=== PATIENT | female | born 1940 | race Caucasian/White ===

== ENCOUNTER 2016-11-25 11:56 | Day surgery (SDC) | payer MEDICARE, MEDICAID ==
[~2016-11-25 11:56] MED LIST: DIPHENHYDRAMINE HCL 50 MG/ML VIAL ONE; EPINEPHRINE INJ 1 MG/10 ML DISP.SYRIN ONE; FENTANYL CITRATE INJ/PF 100 MCG/2 ML AMPUL ONE; FLUMAZENIL INJ 0.5 MG/5 ML VIAL IV ONE; GLUCAGON,HUMAN RECOMB 1 MG INJ ONE; MIDAZOLAM 2 MG/2 ML INJ ONE; NALOXONE HCL INJ/PF 0.4 MG/1 ML SDV ONE; ONDANSETRON HCL INJ/PF 4 MG/2 ML SDV ONE
[2016-11-25] MEDS ORDERED: ONABOTULINUMTOXINA INJ/PF 100 UNIT SDV IJ ONE (13:00)
--- NOTE | 2016-11-25 14:03 | Operative Report ---
Operative Report DATE OF SURGERY: 11/25/16 Operative Report: The risks benefits and alternatives of the procedure explained to the patient in detail and informed consent is obtained.A GIF Olympus video scope was inserted into the patient's mouth and hypopharynx ,the esophagus is identified intubated and insufflated, the scope was then advanced through the esophagus stomach and duodenum, retroflexion maneuver is done, the esophagus stomach and first and second portions of the duodenum examined PREOPERATIVE DIAGNOSIS: Nausea and vomiting. Gastroparesis POSTOPERATIVE DIAGNOSIS: Schatzki's ring status post breakage. Hiatal hernia. Gastritis. Residual food noted in the stomach suggestive of gastroparesis, status post Botox injection 100 units per 5 mL OPERATION: EGD with submucosal injection SURGEON: MALENA QUIÑONEZ ANESTHESIA: Moderate Sedation - 2 mg of Versed conscious sedation monitoring time 30 minutes TISSUE REMOVED OR ALTERED: Gastritis, gastric specimen obtained without Helicobacter pylori COMPLICATIONS: None. ESTIMATED BLOOD LOSS: None. INTRAOPERATIVE FINDINGS: As described above. PROCEDURE: Patient tolerated the procedure well. No immediate postprocedure complications are noted. Patient discharged in good condition. Discharge date 11/25/2016. Discharge diet: Regular. Discharge activity: Regular. 2-3 week follow-up to discuss findings. We will wait on biopsies. Patient is instructed to call the office or proceed to the emergency room should there be any further problems or questions. I did write a prescription for the patient for 5 mg of Valium as that seems to help her gastroparesis.
[2016-11-25 14:31] VITALS: BP 122/72
== END 2016-11-25 14:25 | disposition home or self-care (01) ==
LOC: END 11:56
PROVIDERS: ATTEND Internal Medicine Gastroenterology
PROC: 0DB68ZX Excision of Stomach, Via Natural or Artificial Opening Endoscopic, Diagnostic (ICD-10-PCS; principal; 2016-11-25 12:30)
PROC: 3E0G8GC Introduction of Other Therapeutic Substance into Upper GI, Via Natural or Artificial Opening Endoscopic (ICD-10-PCS; 2016-11-25 12:30)
DX: R10.13 Epigastric pain (principal); K44.9 Diaphragmatic hernia without obstruction or gangrene; K29.50 Unspecified chronic gastritis without bleeding; K31.84 Gastroparesis; E78.00 Pure hypercholesterolemia, unspecified; I10 Essential (primary) hypertension; Z79.82 Long term (current) use of aspirin; Z79.899 Other long term (current) drug therapy; Z79.891 Long term (current) use of opiate analgesic; Z85.3 Personal history of malignant neoplasm of breast
CPT/HCPCS: 43236; 43239; 88342 ×2; 88305 ×2; J2250; J2405; J0585; J0171; J1200; J1610; J2310; J3010; J3490

== ENCOUNTER 2017-01-09 11:01 | Day surgery (SDC) | payer MEDICARE, MEDICAID ==
[~2017-01-09 11:01] MED LIST changes: -MIDAZOLAM 2 MG/2 ML INJ ONE; +ONABOTULINUMTOXINA INJ/PF 100 UNIT SDV IJ PRN
[2017-01-09] MEDS: MIDAZOLAM 2 MG/2 ML INJ ONE ×3 (12:01→12:11)
--- NOTE | 2017-01-09 12:17 | Operative Report ---
Operative Report DATE OF SURGERY: 01/09/17 Operative Report: The risks benefits and alternatives of the procedure explained to the patient in detail and informed consent is obtained. A GIF Olympus video scope was inserted into the patient's mouth and hypopharynx, the esophagus is identified intubated and insufflated ,the scope was then advanced through the esophagus stomach and duodenum ,retroflexion maneuver is done the esophagus stomach and first and second portions of the duodenum examined. PREOPERATIVE DIAGNOSIS: Nausea vomiting POSTOPERATIVE DIAGNOSIS: Patent gastric outlet. Gastritis status post biopsy. Injection of Botox at the distal esophageal junction to see if that would alleviate some of the patient's symptoms, consideration of achalasia OPERATION: EGD with submucosal injection. EGD with biopsy SURGEON: MALENA QUIÑONEZ ANESTHESIA: Moderate Sedation - 4 mg of Versed, 50 mcg of fentanyl. Conscious sedation monitoring time 30 minutes. TISSUE REMOVED OR ALTERED: As described above. COMPLICATIONS: None. ESTIMATED BLOOD LOSS: None. INTRAOPERATIVE FINDINGS: As described above. PROCEDURE: Patient tolerated the procedure well. No immediate postprocedure complications are noted. Patient discharged in good condition. Discharge date 01/09/2017. Discharge diet: Regular. Discharge activity: Regular. 2-3 week follow-up to discuss findings. Patient is instructed to call the office or proceed to the emergency room should there be any further problems or questions. We will wait on biopsy.
[2017-01-09 13:32] VITALS: BP 141/65
== END 2017-01-09 13:20 | disposition home or self-care (01) ==
LOC: END 11:01
PROVIDERS: ATTEND Internal Medicine Gastroenterology
PROC: 0DB68ZX Excision of Stomach, Via Natural or Artificial Opening Endoscopic, Diagnostic (ICD-10-PCS; principal; 2017-01-09 11:30)
PROC: 3E0G8GC Introduction of Other Therapeutic Substance into Upper GI, Via Natural or Artificial Opening Endoscopic (ICD-10-PCS; 2017-01-09 11:30)
DX: K29.50 Unspecified chronic gastritis without bleeding (principal); K31.84 Gastroparesis; K59.09 Other constipation; E78.00 Pure hypercholesterolemia, unspecified; I10 Essential (primary) hypertension; Z87.891 Personal history of nicotine dependence; Z79.899 Other long term (current) drug therapy; Z79.82 Long term (current) use of aspirin; Z79.891 Long term (current) use of opiate analgesic
CPT/HCPCS: 43236; 43239; 88342 ×2; 88305 ×2; J2250; J3010; J0585; J0171; J1200; J1610; J2310; J2405; J3490

== ENCOUNTER 2017-02-27 12:33 | Emergency (ER) | payer MEDICARE, MEDICAID ==
[2017-02-27] MEDS ORDERED: PROMETHAZINE HCL INJ 25 MG/1 ML VIAL IM ONE (13:09)
[2017-02-27] MEDS ORDERED: NORMAL SALINE 1000 ML 1,000 ML IV ONE (13:09)
--- NOTE | 2017-02-27 13:09 | ER Document Report ---
ED Medical Screen (RME) - General TRAVEL OUTSIDE OF THE [place].S. IN LAST 30 DAYS: No <DENISE GUZMAN - Last Filed: 02/27/17 14:05> <RAVI NOVAK - Last Filed: 02/27/17 16:36> - General Chief Complaint: Abdominal Pain Stated Complaint: ABDOMINAL PAIN,NAUSEA Time Seen by Provider: 02/27/17 13:01 Notes: Patient is a 76 year old female presenting to the emergency department for nausea and vomiting since Thursday. Patient states she also has low abdominal pain which is exacerbated with standing. Patient states her abdomen is also swollen. Patient denies any hematemesis. Patient receives botox injections to help her stomach empty. Patient denies any fevers, chills, or sweats but states she is frequently hot and cold. Patient was scheduled to have a &C in [place] but it was unsuccessful so she is going to have this done in [place] next week. Patient also is going to receive another botox injection on Thursday. Patient sees Dr. Khan who advises the patient does not receive any CT scanning because she has had 6 or 7 in the past 45 days. Patient was told to go to the emergency department for IV fluids and phenergan because nausea is not controlling her nausea/vomiting. Patient states she takes Miralax every day and has had normal bowel movements. (DENISE GUZMAN) - Related Data Allergies/Adverse Reactions: No Known Allergies Allergy (Verified 02/27/17 12:44) Past Medical History - Past Medical History Cardiac Medical History: Reports: Hx Coronary Artery Disease, Hx Hypertension Denies: Hx Heart Attack Pulmonary Medical History: Denies: Hx Asthma, Hx Bronchitis, Hx COPD, Hx Pneumonia Neurological Medical History: Denies: Hx Cerebrovascular Accident, Hx Seizures Renal/ Medical History: Denies: Hx Peritoneal Dialysis GI Medical History: Denies: Hx Hepatitis, Hx Hiatal Hernia, Hx Ulcer Musculoskeltal Medical History: Reports Hx Arthritis Infectious Medical History: Denies: Hx Hepatitis Past Surgical History: Denies: Hx Hysterectomy, Hx Mastectomy - left lumpectomy- -no restrictions, Hx Open Heart Surgery, Hx Pacemaker - Immunizations Hx Diphtheria, Pertussis, Tetanus Vaccination: Yes <DENISE GUZMAN - Last Filed: 02/27/17 14:05> Physical Exam <DENISE GUZMAN - Last Filed: 02/27/17 14:05> <RAVI NOVAK - Last Filed: 02/27/17 16:36> - Vital signs Vitals: Temp Pulse Resp BP Pulse Ox 97.9 F 91 16 139/69 H 97 02/27/17 12:44 02/27/17 12:44 02/27/17 12:44 02/27/17 12:44 02/27/17 12:44 - Notes Notes: GENERAL: Alert, interacts well. No acute distress. LUNGS: Clear to auscultation bilaterally, no wheezes, rales, or rhonchi. No respiratory distress. HEART: Regular rate and rhythm. No murmurs, gallops, or rubs. ABDOMEN: Soft, Minimal tenderness to the abdomen while in a seated position, exam is difficult due to patient being in a seated position. Non-distended. Bowel sounds present in all 4 quadrants. NEUROLOGICAL: Alert and oriented x3. Normal speech. (DENISE GUZMAN) Course - Laboratory Result Diagrams: 02/27/17 16:05 02/27/17 16:05 <RAVI NOVAK - Last Filed: 02/27/17 16:36> - Vital Signs Vital signs: Temp Pulse Resp BP Pulse Ox 97.9 F 91 16 139/69 H 97 02/27/17 12:44 02/27/17 12:44 02/27/17 12:44 02/27/17 12:44 02/27/17 12:44 - Laboratory Laboratory results interpreted by me: 02/27/17 02/27/17 14:45 16:05 MCV 98 H MCH 34.0 H Urine Ketones TRACE H Scribe Documentation - Scribe Written by Scribe:: Ranjeet Barba 02/27/17 14:11 acting as scribe for :: Mikey <DENISE GUZMAN - Last Filed: 02/27/17 14:05>
--- NOTE | 2017-02-27 14:14 | ER Document Report ---
ED GI/ - General Chief Complaint: Abdominal Pain Stated Complaint: ABDOMINAL PAIN,NAUSEA Time Seen by Provider: 02/27/17 13:01 Mode of Arrival: Ambulatory Information source: Patient Notes: 76-year-old with chronic abdominal pain female sent by Dr. Smart for 1 L IV fluid and Phenergan IM injection. She has been complaining of abdominal pain for several months, history of gastroparesis in which she takes erythromycin to help induce movements and had botox via EGD in november and January. She has had 7-8 CT scans in the last 45 days. 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 Dr. Smart is her industrial engineering manager. She had bilious vomiting for several days, decreased appetite, no fever. She has a bowel movement daily due to MiraLAX. She is scheduled for D and C in [place] on due to uterinefluid collection and cervical os stenosis. TRAVEL OUTSIDE OF THE [place] IN LAST 30 DAYS: No - Related Data Allergies/Adverse Reactions: No Known Allergies Allergy (Verified 02/27/17 12:44) Past Medical History - General Information source: Patient, Relative - daughter that she lives with - Social History Smoking Status: Never Smoker Frequency of alcohol use: None Drug Abuse: None Lives with: Family - daughter Family History: Reviewed & Not Pertinent Patient has suicidal ideation: No Patient has homicidal ideation: No - Past Medical History Cardiac Medical History: Reports: Hx Coronary Artery Disease, Hx Hypercholesterolemia, Hx Hypertension Malignancy Medical History: Reports: Hx Breast Cancer GI Medical History: Reports: Other - Gastroparesis Musculoskeltal Medical History: Reports Hx Arthritis Past Surgical History: Reports: Hx Gynecologic Surgery - left breast lumpectomy , Hx Orthopedic Surgery - back disc repair - Immunizations Hx Diphtheria, Pertussis, Tetanus Vaccination: Yes Hx Pneumococcal Vaccination: 07/06/11 Review of Systems - Review of Systems Constitutional: No symptoms reported EENT: No symptoms reported Cardiovascular: No symptoms reported Respiratory: No symptoms reported Gastrointestinal: See HPI Genitourinary: No symptoms reported Female Genitourinary: No symptoms reported Musculoskeletal: No symptoms reported Skin: No symptoms reported Hematologic/Lymphatic: No symptoms reported Neurological/Psychological: No symptoms reported Physical Exam - Vital signs Vitals: Temp Pulse Resp BP Pulse Ox 97.9 F 91 16 139/69 H 97 02/27/17 12:44 08/25/17 12:44 02/27/17 12:44 02/27/17 12:44 02/27/17 12:44 Interpretation: Normal - General General appearance: Appears well, Alert In distress: None - HEENT Head: Normocephalic, Atraumatic Eyes: Normal Conjunctiva: Normal Pupils: PERRL Pharynx: Normal Neck: Supple. No: Lymphadenopathy - Respiratory Respiratory status: No respiratory distress Chest status: Nontender Breath sounds: Normal Chest palpation: Normal - Cardiovascular Rhythm: Regular Heart sounds: Normal auscultation Murmur: No - Abdominal Inspection: Normal Distension: No distension Bowel sounds: Normal Tenderness: Tender - mild soft generalized tenderness. No: Guarding, Rebound Organomegaly: No organomegaly. No: Hepatomegaly, Splenomegaly - Back Back: Normal, Nontender. No: CVA tenderness - Extremities General upper extremity: Normal inspection, Nontender, Normal color, Normal ROM , Normal temperature General lower extremity: Normal inspection, Nontender, Normal color, Normal ROM , Normal temperature, Normal weight bearing. No: Nahed's sign - Neurological Neuro grossly intact: Yes Cognition: Normal Orientation: AAOx4 Mattie Coma Scale Eye Opening: Spontaneous Mattie Coma Scale Verbal: Oriented Harper Coma Scale Motor: Obeys Commands Mattie Coma Scale Total: 15 Speech: Normal Motor strength normal: LUE, RUE, LLE, RLE Sensory: Normal - Psychological Associated symptoms: Normal affect, Normal mood - Skin Skin Temperature: Warm Skin Moisture: Dry Skin Color: Normal Skin irregularity: negative: Rash Course - Re-evaluation Re-evalutation: 02/27/17 17:14 Acute abdominal series is negative for obstruction or acute changes. Lab work is normal. Patient is up to the bedside commode and she feels better there is no nausea or vomiting while in the emergency department. Her NS IV fluid is infusing. - Vital Signs Vital signs: Temp Pulse Resp BP Pulse Ox 97.9 F 91 16 139/69 H 97 02/27/17 12:44 02/27/17 12:44 02/27/17 12:44 02/27/17 12:44 02/27/17 12:44 - Laboratory Result Diagrams: 02/27/17 16:05 02/27/17 16:05 Laboratory results interpreted by me: 02/27/17 02/27/17 02/27/17 14:45 16:05 16:05 MCV 98 H MCH 34.0 H Calcium 10.4 H Direct Bilirubin 0.6 H Urine Ketones TRACE H Discharge - Discharge Clinical Impression: Chronic abdominal pain, Gastroparesis, Vomiting Condition: Good Disposition: HOME, SELF-CARE Instructions: Abdominal Pain ([facility]), Nausea or Vomiting, Nonspecific ([facility]), Antinausea Medication ([facility]) Additional Instructions: to er if worse see dr. quiñonez on thursday as planned Please complete the patient satisfaction survey if you get one, and return it.. If you do not receive a survey, then you can go to the [facility] website, [email or web address] and place your comments about your very good care. Thank you very much. It was a pleasure being your medical provider today. Prescriptions: Promethazine HCl [Phenergan 25 mg Supp.rect] 25 mg OR Q6H PRN #[id number] supp.rect PRN Reason: Referrals: MALENA QUIÑONEZ MD [Primary Care Provider] - 03/02/17
[2017-02-27 14:56] LABS: APPEARANCE,URINE CLEAR; BILIRUBIN,URINE NEGATIVE (NEGATIVE); GLUCOSE, URINE NEGATIVE (NEGATIVE); KETONES,URINE TRACE mg/dL (NEGATIVE); LEUKOCYTE ESTERASE,URINE NEGATIVE (NEGATIVE); NITRITE,URINE NEGATIVE (NEGATIVE); PROTEIN,URINE NEGATIVE (NEGATIVE); URINE SPECIFIC GRAVITY 1.013; UROBILINOGEN,URINE NEGATIVE mg/dL (<2.0)
--- NOTE | 2017-02-27 15:35 | RADIOLOGY REPORT (SQ) ---
EXAM DESCRIPTION: ACUTE ABDOMEN SERIES COMPLETED DATE/TIME: 02/27/2017 3:07 pm REASON FOR STUDY: vomiting, r/o SBO COMPARISON: None. NUMBER OF VIEWS: Three views. TECHNIQUE: Frontal chest, supine abdomen and upright/decubitus abdomen radiographic images acquired. LIMITATIONS: None. FINDINGS: CHEST: Lungs clear of infiltrates. FREE AIR: None. No abnormal gas collections. BOWEL GAS PATTERN: Nonobstructive pattern. No dilated loops or air fluid levels. CALCIFICATIONS: No suspicious calcifications. HARDWARE: Lumbar fusion. SOFT TISSUES: No gross mass or suggestion of organomegaly. BONES: No acute fracture. No worrisome bone lesions. OTHER: No other significant finding. IMPRESSION: NO RADIOGRAPHIC EVIDENCE FOR ACUTE ABDOMINAL DISEASE. TECHNICAL DOCUMENTATION: JOB ID: [id number] [employer]- All Rights Reserved
[2017-02-27 16:11] LABS: ABSOLUTE EOSINOPHILS # (AUTO) 0.1 10^3/uL (0.0-0.6); ABSOLUTE LYMPHOCYTES (AUTO) 1.2 10^3/uL (0.5-4.7); ABSOLUTE MONOCYTES (AUTO) 0.4 10^3/uL (0.1-1.4); ABSOLUTE NEUT (AUTO) 3.4 10^3/uL (1.7-8.2); BASOPHILS % (AUTO) 0.8 % (0-2); EOSINOPHILS % (AUTO) 2.9 % (0-6); HEMATOCRIT 38.8 % (36.0-47.0); HEMOGLOBIN 13.5 g/dL (12.0-15.5); HGB HCT DIFFERENCE 1.7; LYMPHOCYTES % (AUTO) 22.7 % (13-45); MEAN CORPUSCULAR HGB CONC 34.8 g/dL (32.0-36.0); MEAN CORPUSCULAR VOLUME 98 fl (80-97); MONOCYTES % (AUTO) 7.5 % (3-13); RED BLOOD COUNT 3.97 10^6/uL (3.72-5.28); RED CELL DISTRIBUTION WIDTH 13.7 % (11.5-14.0); SEGMENTED NEUTROPHILS % (AUTO) 66.1 % (42-78); WHITE BLOOD COUNT 5.1 10^3/uL (4.0-10.5)
[2017-02-27 16:43] LABS: ALANINE AMINOTRANSFERASE 17 U/L (9-52); ALBUMIN 4.6 g/dL (3.5-5.0); ALKALINE PHOSPHATASE 111 U/L (38-126); ANION GAP 11 (5-19); ASPARTATE AMINO TRANSFERASE 35 U/L (14-36); BILIRUBIN,DIRECT 0.6 mg/dL (0.0-0.4); BLOOD UREA NITROGEN 17 mg/dL (7-20); CALCIUM 10.4 mg/dL (8.4-10.2); CARBON DIOXIDE 30 mmol/L (22-30); CHLORIDE 102 mmol/L (98-107); CREATININE RESULT 0.83 mg/dL (0.52-1.25); GLUCOSE 91 mg/dL (75-110); POTASSIUM 3.9 mmol/L (3.6-5.0); SODIUM 143.4 mmol/L (137-145); TOTAL PROTEIN 7.8 g/dL (6.3-8.2)
[2017-02-27 18:06] VITALS: BP 163/69
== END 2017-02-27 18:18 | disposition home or self-care (01) ==
LOC: ER 12:33
DX: K31.84 Gastroparesis (principal); N88.2 Stricture and stenosis of cervix uteri; R10.9 Unspecified abdominal pain; G89.29 Other chronic pain; R11.14 Bilious vomiting; R63.0 Anorexia; I25.10 Atherosclerotic heart disease of native coronary artery without angina pectoris; I10 Essential (primary) hypertension; Z79.2 Long term (current) use of antibiotics; Z98.890 Other specified postprocedural states; Z79.899 Other long term (current) drug therapy; Z85.3 Personal history of malignant neoplasm of breast
CPT/HCPCS: 99284; 96372; 51701; 36415; 87086; 85025; 80053; 81001; 74022; J2550

== ENCOUNTER 2017-03-02 11:04 | Day surgery (SDC) | payer MEDICARE, MEDICAID ==
[2017-03-02] MEDS ORDERED: PROPOFOL INJ 200 MG/20 ML VIAL IV ONE (11:23)
[2017-03-02] MEDS ORDERED: ONABOTULINUMTOXINA INJ/PF 100 UNIT SDV IM ONE (12:00)
[2017-03-02 13:02] VITALS: BP 151/75
--- NOTE | 2017-03-02 13:25 | Operative Report ---
Operative Report DATE OF SURGERY: 03/02/17 Operative Report: The risks benefits and alternatives of the procedure explained to the patient in detail and informed consent is obtained.A GIF Olympus video scope was inserted into the patient's mouth and hypopharynx, the esophagus is identified intubated and insufflated, the scope was then advanced through the esophagus stomach and duodenum ,retroflexion maneuver is done, the esophagus stomach and first and second portions of the duodenum examined PREOPERATIVE DIAGNOSIS: Nausea vomiting, known gastroparesis POSTOPERATIVE DIAGNOSIS: Some residual fluid noted in the stomach. Residual food noted in the esophagus. Gastritis is noted biopsies obtained. Botox injection done 3 cc at the gastric outlet, 2 cc at the distal esophageal junction. Patient may possibly have achalasia OPERATION: EGD with submucosal injection. EGD with biopsy SURGEON: MALENA QUIÑONEZ ANESTHESIA: LMAC TISSUE REMOVED OR ALTERED: Gastric mucosal specimen obtained to rule out Helicobacter pylori COMPLICATIONS: None. ESTIMATED BLOOD LOSS: None. INTRAOPERATIVE FINDINGS: As described above. PROCEDURE: Patient tolerated procedure well. No immediate postprocedure complications are noted. Patient discharged in good condition. Discharge date 03/02/2017. Discharge diet: Regular. Discharge activity: Regular. 2-3 week follow-up to discuss findings. Patient is instructed to call the office or proceed to the emergency room should there be any further problems or questions. We will wait on pathology.
== END 2017-03-02 12:59 | disposition home or self-care (01) ==
LOC: END 11:04
PROVIDERS: ATTEND Internal Medicine Gastroenterology
PROC: 0DB68ZX Excision of Stomach, Via Natural or Artificial Opening Endoscopic, Diagnostic (ICD-10-PCS; principal; 2017-03-02 13:30)
DX: K31.9 Disease of stomach and duodenum, unspecified (principal)
CPT/HCPCS: 43239; 88342 ×2; 88305 ×2; J2704; J0585; 43236; 740

== ENCOUNTER 2018-02-10 08:19 | Day surgery (SDC) | payer MEDICARE, MEDICAID ==
[2018-02-10] MEDS ORDERED: ONDANSETRON HCL INJ/PF 4 MG/2 ML SDV ONE (08:24)
[2018-02-10] MEDS ORDERED: DIPHENHYDRAMINE HCL 50 MG/ML VIAL ONE (08:24)
[2018-02-10] MEDS ORDERED: MIDAZOLAM 2 MG/2 ML INJ ONE (08:24)
[2018-02-10] MEDS ORDERED: NALOXONE HCL INJ/PF 0.4 MG/1 ML SDV ONE (08:24)
[2018-02-10] MEDS ORDERED: FENTANYL CITRATE INJ/PF 100 MCG/2 ML AMPUL ONE (08:25)
[2018-02-10] MEDS ORDERED: GLUCAGON,HUMAN RECOMB 1 MG INJ ONE (08:26)
[2018-02-10] MEDS ORDERED: EPINEPHRINE INJ 1 MG/10 ML DISP.SYRIN ONE (08:26)
[2018-02-10] MEDS ORDERED: FLUMAZENIL INJ 0.5 MG/5 ML VIAL ONE (08:26)
[2018-02-10] MEDS ORDERED: ONABOTULINUMTOXINA INJ/PF 100 UNIT SDV IJ ONE (09:00)
[2018-02-10] MEDS: MIDAZOLAM 2 MG/2 ML INJ ONE ×2 (09:13→09:21)
--- NOTE | 2018-02-10 09:29 | Operative Report ---
Operative Report DATE OF SURGERY: 02/10/18 Operative Report: The risks benefits and alternatives of the procedure explained to the patient in detail and informed consent is obtained.A GIF Olympus video scope was inserted into the patient's mouth and hypopharynx, the esophagus is identified intubated and insufflated, the scope was then advanced through the esophagus stomach and duodenum ,retroflexion maneuver is done, the esophagus stomach and first and second portions of the duodenum examined PREOPERATIVE DIAGNOSIS: Gastroparesis. Nausea vomiting POSTOPERATIVE DIAGNOSIS: Gastroparesis. Status post Botox injection 3 mL's or 60 units in the gastric outlet. 2 mL or 40 units at the distal esophageal junction OPERATION: EGD with submucosal injection SURGEON: MALENA QUIÑONEZ ANESTHESIA: LMAC - 4 mg of Versed, 25 mcg of fentanyl. 4 mg of Zofran. Conscious sedation monitoring time 30 minutes. TISSUE REMOVED OR ALTERED: None. COMPLICATIONS: None. ESTIMATED BLOOD LOSS: None. INTRAOPERATIVE FINDINGS: As noted above. PROCEDURE: Patient tolerated the procedure well. No immediate postprocedure complications are noted. Patient is discharged in good condition. Discharge date 02/10/2018. Discharge diet: Regular. Discharge activity: Regular. 2-3 week follow-up to discuss findings. Patient is instructed call the office or proceed to the emergency room should there be any further problems or questions. We will wait on pathology.
[2018-02-10 10:53] VITALS: BP 149/68
== END 2018-02-10 10:40 | disposition home or self-care (01) ==
LOC: END 08:19
PROVIDERS: ATTEND Internal Medicine Gastroenterology
DX: K31.84 Gastroparesis (principal); R11.2 Nausea with vomiting, unspecified; E78.00 Pure hypercholesterolemia, unspecified; I10 Essential (primary) hypertension; Z87.891 Personal history of nicotine dependence; Z79.899 Other long term (current) drug therapy; Z79.891 Long term (current) use of opiate analgesic; Z88.2 Allergy status to sulfonamides
CPT/HCPCS: 43236; J2250; J3010; J2405; J0585; J0171; J1200; J1610; J2310; J3490

== ENCOUNTER 2018-04-17 10:54 | Emergency (ER) | payer MEDICARE, MEDICAID ==
[2018-04-17] MEDS ORDERED: KETOROLAC TROMETHAMINE INJ/PF 30 MG/1 ML SDV IV ONE (11:10)
--- NOTE | 2018-04-17 11:11 | ER Document Report ---
ED Medical Screen (RME) - General Chief Complaint: Abdominal Pain Stated Complaint: ABDOMEN PAIN Time Seen by Provider: 04/17/18 11:08 Mode of Arrival: Wheelchair Information source: Patient, Relative TRAVEL OUTSIDE OF THE [place] IN LAST 30 DAYS: No - HPI Patient complains to provider of: abd pain Onset: Just prior to arrival - pt with onset of R-sided abd pain in the past 1- 2 hrs., Plus nausea - Related Data Allergies/Adverse Reactions: latex Allergy (Intermediate, Verified 04/17/18 10:55) IF LEFT ON TOO LONG WILL IRRITATE SKIN Past Medical History - Past Medical History Cardiac Medical History: Reports: Hx Coronary Artery Disease, Hx Hypercholesterolemia, Hx Hypertension Denies: Hx Heart Attack Pulmonary Medical History: Denies: Hx Asthma, Hx Bronchitis, Hx COPD, Hx Pneumonia Neurological Medical History: Denies: Hx Cerebrovascular Accident, Hx Seizures Renal/ Medical History: Denies: Hx Peritoneal Dialysis Malignancy Medical History: Reports: Hx Breast Cancer GI Medical History: Denies: Hx Hepatitis, Hx Hiatal Hernia, Hx Ulcer Musculoskeltal Medical History: Reports Hx Arthritis Infectious Medical History: Denies: Hx Hepatitis Past Surgical History: Reports: Hx Gynecologic Surgery - left breast lumpectomy , Hx Orthopedic Surgery - back disc repair. Denies: Hx Hysterectomy, Hx Mastectomy - left lumpectomy--no restrictions, Hx Open Heart Surgery, Hx Pacemaker - Immunizations Hx Diphtheria, Pertussis, Tetanus Vaccination: Yes Physical Exam - Vital signs Vitals: Temp Pulse Resp BP Pulse Ox 97.6 F 93 20 186/80 H 98 04/17/18 10:58 04/17/18 10:58 04/17/18 10:58 04/17/18 10:58 04/17/18 10:58 Course - Vital Signs Vital signs: Temp Pulse Resp BP Pulse Ox 97.6 F 93 20 186/80 H 98 04/17/18 10:58 04/17/18 10:58 04/17/18 10:58 04/17/18 10:58 04/17/18 10:58
[2018-04-17 12:07] LABS: ABSOLUTE EOSINOPHILS # (AUTO) 0.1 10^3/uL (0.0-0.6); ABSOLUTE LYMPHOCYTES (AUTO) 1.3 10^3/uL (0.5-4.7); ABSOLUTE MONOCYTES (AUTO) 0.2 10^3/uL (0.1-1.4); ABSOLUTE NEUT (AUTO) 2.6 10^3/uL (1.7-8.2); EOSINOPHILS % (AUTO) 2.6 % (0-6); HEMATOCRIT 35.9 % (36.0-47.0); HEMOGLOBIN 12.5 g/dL (12.0-15.5); LYMPHOCYTES % (AUTO) 30.6 % (13-45); MEAN CORPUSCULAR HGB CONC 34.9 g/dL (32.0-36.0); MEAN CORPUSCULAR VOLUME 100 fl (80-97); MONOCYTES % (AUTO) 4.9 % (3-13); PLATELET COUNT 225 10^3/uL (150-450); RED BLOOD COUNT 3.58 10^6/uL (3.72-5.28); RED CELL DISTRIBUTION WIDTH 13.7 % (11.5-14.0); SEGMENTED NEUTROPHILS % (AUTO) 60.9 % (42-78); TOTAL CELLS COUNTED % (AUTO) 100 %; WHITE BLOOD COUNT 4.2 10^3/uL (4.0-10.5)
--- NOTE | 2018-04-17 12:35 | RADIOLOGY REPORT (SQ) ---
EXAM DESCRIPTION: U/S ABDOMEN COMPLETE W/O DOP COMPLETED DATE/TIME: 04/17/2018 12:18 pm REASON FOR STUDY: abd pain COMPARISON: None. TECHNIQUE: Dynamic and static grayscale images acquired of the abdomen and recorded on PACS. Additio nal selected color Doppler and spectral images recorded. LIMITATIONS: Patient could not lay in the left lateral decubitus position due to pain. Body habitus limits evaluation. FINDINGS: PANCREAS: No masses. Visualized pancreatic duct normal caliber. LIVER: Echotexture is coarse with increased echogenicity consistent with fatty infiltration. LIVER VASCULATURE: Normal directional flow of the main portal vein and hepatic veins. GALLBLADDER: No gallstones identified. Normal wall thickness. No pericholecystic fluid identified. ULTRASOUND-DETECTED HERNÁNDEZ'S SIGN: Negative. INTRAHEPATIC DUCTS AND COMMON DUCT: CBD and intrahepatic ducts normal caliber. No filling defects. INFERIOR VENA CAVA: Normal flow. AORTA: No aneurysm. RIGHT KIDNEY: Normal size. 2.1 cm upper pole cyst. No solid or suspicious masses. No hydronephrosis . No calcifications. LEFT KIDNEY: Normal size. Normal echogenicity. No solid or suspicious masses. No hydronephrosis. No calcifications. SPLEEN:Normal size. No solid masses. PERITONEAL AND PLEURAL SPACES: No ascites or effusions. OTHER: No other significant finding. IMPRESSION: FATTY LIVER. Patient could not lay in the left lateral decubitus position due to pain. Body habitus limits evaluation.No gallstones identified. Normal gallbladder wall thickness. No perich olecystic fluid identified.. TECHNICAL DOCUMENTATION: JOB ID: [id number] 2010 [employer]- All Rights Reserved Reading location - IP/workstation name: [email or web address]
--- NOTE | 2018-04-17 12:44 | ER Document Report ---
ED GI/ - General Chief Complaint: Abdominal Pain Stated Complaint: ABDOMINAL PAIN Time Seen by Provider: 04/17/18 11:08 Mode of Arrival: Wheelchair Notes: Patient is a 77-year-old female that presents today with the onset around 3 hours prior to arrival of some right mid abdominal pain. She denies any radiation. She denies any nausea, vomiting, fevers, diarrhea, or constipation. She denies any radiation to the chest, cough, shortness of breath, or fevers. Patient had a history of an intestinal blockage in 2012 requiring surgery but no bowel extraction. Patient has a history of severe gastritis requiring Botox injections in the past. TRAVEL OUTSIDE OF THE [place] IN LAST 30 DAYS: No - HPI Patient complains to provider of: Other - See above Onset: Other - See above Timing/Duration: Gradual Quality of pain: Achy Severity at maximum: Moderate Severity in ED: None Pain Level: Denies Location: Other - See above Sexual history: Inactive Associated symptoms: Other Exacerbated by: Denies Relieved by: Denies Similar symptoms previously: Yes Recently seen / treated by doctor: No - Related Data Allergies/Adverse Reactions: latex Allergy (Intermediate, Verified 04/17/18 10:55) IF LEFT ON TOO LONG WILL IRRITATE SKIN Past Medical History - General Information source: Patient, Relative - Social History Smoking Status: Never Smoker Drug Abuse: None Family History: Reviewed & Not Pertinent Patient has suicidal ideation: No Patient has homicidal ideation: No - Past Medical History Cardiac Medical History: Reports: Hx Coronary Artery Disease, Hx Hypercholesterolemia, Hx Hypertension Denies: Hx Heart Attack Pulmonary Medical History: Denies: Hx Asthma, Hx Bronchitis, Hx COPD, Hx Pneumonia Neurological Medical History: Denies: Hx Cerebrovascular Accident, Hx Seizures Renal/ Medical History: Denies: Hx Peritoneal Dialysis Malignancy Medical History: Reports: Hx Breast Cancer GI Medical History: Reports: Hx Gastroesophageal Reflux Disease. Denies: Hx Hepatitis, Hx Hiatal Hernia, Hx Ulcer Musculoskeletal Medical History: Reports Hx Arthritis Infectious Medical History: Denies: Hx Hepatitis Past Surgical History: Reports: Hx Breast Surgery - Lumpectomy x2 to Left (2004) , Hx Gynecologic Surgery - left breast lumpectomy, Hx Orthopedic Surgery - back disc repair. Denies: Hx Hysterectomy, Hx Mastectomy - left lumpectomy--no restrictions, Hx Open Heart Surgery, Hx Pacemaker - Immunizations Hx Diphtheria, Pertussis, Tetanus Vaccination: Yes Hx Pneumococcal Vaccination: 07/06/11 Review of Systems - Review of Systems Constitutional: denies: Fever EENT: denies: Eye discharge, Nose discharge Respiratory: denies: Short of breath Gastrointestinal: denies: Vomiting Genitourinary: denies: Dysuria Musculoskeletal: denies: Leg swelling Skin: Other - no hives. denies: Rash Neurological/Psychological: Other - no slurred speech -: Yes All other systems reviewed and negative Physical Exam - Vital signs Vitals: Temp Pulse Resp BP Pulse Ox 97.6 F 93 20 186/80 H 98 04/17/18 10:58 04/17/18 10:58 04/17/18 10:58 04/17/18 10:58 04/17/18 10:58 Notes: Reviewed vital signs and nursing note as charted by RN. CONSTITUTIONAL: Alert and oriented and responds appropriately to questions. Well -appearing; well-nourished HEAD: Normocephalic; atraumatic EYES: PERRL; sclerae non-icteric ENT: Normal nose; no rhinorrhea; moist mucous membranes; pharynx without lesions noted NECK: Supple without meningismus; non-tender; no cervical lymphadenopathy, no masses CARD: Regular rate and rhythm; no murmurs; symmetric distal pulses RESP: Normal chest excursion without splinting or tachypnea; breath sounds clear and equal bilaterally ABD/GI: Normal bowel sounds; non-distended; soft, currently nontender to deep palpation of all 4 quadrants of the abdomen. No abdominal bruits or palpable masses present BACK: The back appears normal and is non-tender to palpation, there is no CVA tenderness EXT: Normal ROM in all joints; non-tender to palpation; no cyanosis, no effusions, no edema SKIN: No acute lesions noted NEURO: Moves all extremities equally; Motor and sensory function intact PSYCH: The patient's mood and manner are appropriate. Grooming and personal hygiene are appropriate. Course - Re-evaluation Re-evalutation: Given the history and physical examination and the patient's age, I will obtain a liver panel, lipase, EKG, lactic acid level, urinalysis, and reassess. Patient currently has pain-free. Patient was given Toradol by the triage physician and an ultrasound of the abdomen was ordered. 04/17/18 12:43 Ultrasound as recorded. Patient refuses IV contrast secondary to the patient being told it may "hurt my kidneys". She will allow p.o. contrast. No change in examination. EKG is pending. 04/17/18 13:28 EKG shows a heart of 90, normal sinus rhythm, LVH, poor R wave progression, no ST elevation or depression 04/17/18 14:58 Labs as recorded. We are awaiting on the CT scan. Patient still pain-free at this time. 04/17/18 15:58 CT as recorded. Patient has not provided a urine at this time. Patient's pain is to the middle upper abdomen. I spoke with the radiologist who states that the bladder looks normal otherwise. We will perform a catheterized urine analysis. Patient denies any air in her urine and has had no fevers. Patient has never had any bowel resections causing a possible fistula. 04/17/18 16:40 Urine is clear with no signs of infection. I have had a long discussion with the patient and her daughter about making sure she gets a repeat evaluation by the primary care physician. Again I do not believe the fistula is likely given the patient's lack of any bowel resections in the past. Patient still has no abdominal pain and is not had abdominal pain during the course of this ER visit. CT scan was with p.o. contrast. Patient has refused IV contrast. Strict return precautions have been explained and the patient will follow up with the primary care physician. - Vital Signs Vital signs: Temp Pulse Resp BP Pulse Ox 97.6 F 93 23 H 175/80 H 96 04/17/18 10:58 04/17/18 10:58 04/17/18 16:14 04/17/18 16:14 04/17/18 16:14 - Laboratory Result Diagrams: 04/17/18 11:42 04/17/18 14:08 Laboratory results interpreted by me: 04/17/18 04/17/18 11:42 14:08 RBC 3.58 L Hct 35.9 L MCV 100 H MCH 35.0 H ALT 8 L Discharge - Discharge Clinical Impression: Right sided abdominal pain, Pneumaturia Condition: Good Disposition: HOME, SELF-CARE Additional Instructions: Come back immediately for any return of pain, fever, vomiting, change in location or quality of pain, shortness of breath, or any other acute problems. Please make sure that you follow-up with the primary care physician as we have discussed about the small amount of air found in your bladder on the CT scan. Referrals: MALENA QUIÑONEZ MD [Primary Care Provider] - Follow up as needed
[2018-04-17 14:51] LABS: ALANINE AMINOTRANSFERASE 8 U/L (9-52); ALBUMIN 4.2 g/dL (3.5-5.0); ALKALINE PHOSPHATASE 101 U/L (38-126); ANION GAP 8 (5-19); ASPARTATE AMINO TRANSFERASE 26 U/L (14-36); BILIRUBIN,DIRECT 0.4 mg/dL (0.0-0.4); BLOOD UREA NITROGEN 12 mg/dL (7-20); CALCIUM 9.6 mg/dL (8.4-10.2); CARBON DIOXIDE 30 mmol/L (22-30); CHLORIDE 105 mmol/L (98-107); GLUCOSE 105 mg/dL (75-110); POTASSIUM 4.5 mmol/L (3.6-5.0); SODIUM 142.5 mmol/L (137-145); TOTAL PROTEIN 7.8 g/dL (6.3-8.2)
--- NOTE | 2018-04-17 15:47 | RADIOLOGY REPORT (SQ) ---
EXAM DESCRIPTION: CT ABD/PELVIS ORAL ONLY COMPLETED DATE/TIME: 04/17/2018 3:29 pm REASON FOR STUDY: 11; right abd pain; h/o obstruction COMPARISON: None. TECHNIQUE: CT scan of the abdomen and pelvis performed with oral contrast and no intravenous contras t. Images reviewed with lung, soft tissue, and bone windows. Reconstructed coronal and sagittal MPR i mages reviewed. All images stored on PACS. All CT scanners at this facility use dose modulation, iterative reconstruction, and/or weight based d osing when appropriate to reduce radiation dose to as low as reasonably achievable (ALARA). [facility]: Dose Right [facility]: CareDose [facility]: Dose Right [facility]: Teradose 4D [facility]: [employer] RADIATION DOSE: CT Rad equipment meets quality standard of care and radiation dose reduction techniq ues were employed. CTDIvol: 6.4 mGy. DLP: 342 mGy-cm.mGy. LIMITATIONS: None. FINDINGS: LOWER CHEST: Chronic subpleural scarring in the lingula. NON-CONTRASTED LIVER, SPLEEN, ADRENALS: Evaluation limited by lack of IV contrast. No identified sign ificant masses. PANCREAS: No masses. No peripancreatic inflammatory changes. GALLBLADDER: No identified stones by CT criteria. No inflammatory changes to suggest cholecystitis. RIGHT KIDNEY AND URETER: No solid masses. No significant calcification. No hydronephrosis or hydroure ter. LEFT KIDNEY AND URETER: No solid masses. No significant calcification. No hydronephrosis or hydrouret er. AORTA AND RETROPERITONEUM: No aneurysm. No retroperitoneal masses or adenopathy. BOWEL AND PERITONEAL CAVITY: Sigmoid diverticulosis. No obvious masses or inflammatory changes. No f ree fluid. APPENDIX: Normal. PELVIS, BLADDER, AND ABDOMINAL WALL: No abnormal pelvic masses. No abdominal wall hernias. Bladder sh ows an air-fluid level, correlate with recent catheterization. . BONES: No acute findings. Posterior lumbar fusion hardware appears intact. OTHER: No other significant finding. IMPRESSION: Bladder shows an air-fluid level, correlate with recent catheterization. Otherwise, NO ACUTE ABDOMINAL PROCESS. TECHNICAL DOCUMENTATION: JOB ID: [id number] [id number] Quality ID # [id number]: Final reports with documentation of one or more dose reduction techniques (e.g., Au tomated exposure control, adjustment of the mA and/or kV according to patient size, use of iterative reconstruction technique) 2010 [employer]- All Rights Reserved Reading location - IP/workstation name: [email or web address]
[2018-04-17 16:28] VITALS: BP 175/80
[2018-04-17 16:31] LABS: APPEARANCE,URINE CLEAR; BILIRUBIN,URINE NEGATIVE (NEGATIVE); COLOR,URINE STRAW; GLUCOSE, URINE NEGATIVE (NEGATIVE); KETONES,URINE NEGATIVE (NEGATIVE); LEUKOCYTE ESTERASE,URINE NEGATIVE (NEGATIVE); NITRITE,URINE NEGATIVE (NEGATIVE); PROTEIN,URINE NEGATIVE (NEGATIVE); URINE SPECIFIC GRAVITY 1.005; UROBILINOGEN,URINE NEGATIVE mg/dL (<2.0)
--- NOTE | 2018-04-17 20:47 | EKG REPORT ---
SEVERITY:- ABNORMAL ECG - SINUS RHYTHM LEFT ANTERIOR FASCICULAR BLOCK LEFT VENTRICULAR HYPERTROPHY : Confirmed by: Lazara Burton MD 17-Apr-2018 20:47:17
== END 2018-04-17 17:12 | disposition home or self-care (01) ==
LOC: ER 10:54
DX: R39.89 Other symptoms and signs involving the genitourinary system (principal); R10.9 Unspecified abdominal pain; I25.10 Atherosclerotic heart disease of native coronary artery without angina pectoris; E78.00 Pure hypercholesterolemia, unspecified; Z91.040 Latex allergy status; Z85.3 Personal history of malignant neoplasm of breast
CPT/HCPCS: 93005; 99284; 96374; 36415; 83605; 83690; 85025; 80053; 81001; 76700; 74176; 93010; J1885

== ENCOUNTER 2018-10-21 11:40 | Day surgery (SDC) | payer MEDICARE, MEDICAID ==
[~2018-10-21 11:40] MED LIST changes: -DIPHENHYDRAMINE HCL 50 MG/ML VIAL ONE; -EPINEPHRINE INJ 1 MG/10 ML DISP.SYRIN ONE; -FENTANYL CITRATE INJ/PF 100 MCG/2 ML AMPUL ONE; -FLUMAZENIL INJ 0.5 MG/5 ML VIAL IV ONE; -GLUCAGON,HUMAN RECOMB 1 MG INJ ONE; -NALOXONE HCL INJ/PF 0.4 MG/1 ML SDV ONE; -ONDANSETRON HCL INJ/PF 4 MG/2 ML SDV ONE
[2018-10-21] MEDS ORDERED: FLUMAZENIL INJ 0.5 MG/5 ML VIAL ONE (11:51)
[2018-10-21] MEDS ORDERED: DIPHENHYDRAMINE HCL 50 MG/ML VIAL ONE (11:51)
[2018-10-21] MEDS ORDERED: FENTANYL CITRATE INJ/PF 100 MCG/2 ML AMPUL ONE (11:51)
[2018-10-21] MEDS ORDERED: NALOXONE HCL INJ/PF 0.4 MG/1 ML SDV ONE (11:51)
[2018-10-21] MEDS ORDERED: GLUCAGON,HUMAN RECOMB 1 MG INJ ONE (11:51)
[2018-10-21] MEDS ORDERED: EPINEPHRINE INJ 1 MG/10 ML DISP.SYRIN ONE (11:51)
[2018-10-21] MEDS ORDERED: ONDANSETRON HCL INJ/PF 4 MG/2 ML SDV ONE (11:51)
[2018-10-21] MEDS: MIDAZOLAM 2 MG/2 ML INJ ONE ×2 (13:02→13:06)
--- NOTE | 2018-10-21 13:20 | Operative Report ---
Operative Report DATE OF SURGERY: 10/21/18 Operative Report: The risks benefits and alternatives of the procedure explained to the patient in detail and informed consent is obtained.A GIF Olympus video scope was inserted into the patient's mouth and hypopharynx, the esophagus is identified intubated and insufflated, the scope was then advanced through the esophagus stomach and duodenum, retroflexion maneuver is done, the esophagus stomach and first and second portions of the duodenum examined PREOPERATIVE DIAGNOSIS: Gastroparesis POSTOPERATIVE DIAGNOSIS: Gastroparesis. Status post Botox injection. Schatzki's ring, status post breakage with biopsy forceps OPERATION: EGD with submucosal injection. EGD with biopsy SURGEON: MALENA QUIÑONEZ ANESTHESIA: Moderate Sedation TISSUE REMOVED OR ALTERED: None. COMPLICATIONS: None. ESTIMATED BLOOD LOSS: None. INTRAOPERATIVE FINDINGS: As noted above. PROCEDURE: Patient tolerated procedure well. No immediate postprocedure complications are noted. Patient discharged in good condition. Discharge date 10/21/2018. Discharge diet: Regular. Discharge activity: Regular. 2-3-week follow-up to discuss findings. Patient is instructed to call the office or proceed to the emergency room should there be any further problems or questions.
[2018-10-21 14:13] VITALS: BP 154/59
== END 2018-10-21 14:25 | disposition home or self-care (01) ==
LOC: END 11:40
PROVIDERS: ATTEND Internal Medicine Gastroenterology
DX: K31.84 Gastroparesis (principal); R11.2 Nausea with vomiting, unspecified; K22.2 Esophageal obstruction; E78.00 Pure hypercholesterolemia, unspecified; I10 Essential (primary) hypertension; Z87.891 Personal history of nicotine dependence; Z85.3 Personal history of malignant neoplasm of breast; Z79.899 Other long term (current) drug therapy; Z79.891 Long term (current) use of opiate analgesic; Z88.2 Allergy status to sulfonamides
CPT/HCPCS: 43236; 43239; J0171; J0585; J1200; J1610; J2250; J2310; J2405; J3010; J3490

== ENCOUNTER 2018-11-05 08:07 | Day surgery (SDC) | payer MEDICARE, MEDICAID ==
[~2018-11-05 08:07] MED LIST changes: -ONABOTULINUMTOXINA INJ/PF 100 UNIT SDV IJ PRN; +PROPOFOL INJ 200 MG/20 ML VIAL IV ONE
[2018-11-05 10:30] VITALS: BP 058/60
--- NOTE | 2018-11-05 12:02 | Operative Report ---
Operative Report DATE OF SURGERY: 11/05/18 Operative Report: The risks, benefits and alternatives of the procedure including the risk of bleeding, perforation requiring surgery have been explained to the patient in detail and informed consent has been obtained. The patient is placed in a left, lateral decubital position. Timeout was called. Propofol medication is administered. Rectal examination is done which did not reveal any masses, tears or fissures. An Olympus videoscope was introduced into the patient's rectum. The scope was then carefully advanced all the way to the cecum. The cecum was identified by the usual anatomical landmarks including the ileocecal valve as well as the appendiceal office. Photodocumentation is obtained. The scope was then sequentially pulled back via the various segments of the colon including the ascending colon, hepatic flexure, transverse colon, splenic flexure, aggie cending colon and finally into the rectosigmoid portions of the colon. Retroflexion maneuver was performed. PREOPERATIVE DIAGNOSIS: Personal history of polyps POSTOPERATIVE DIAGNOSIS: Diverticulosis without any evidence of diverticulitis. Possible small small polyp in the area of the ascending colon status post biopsy. Internal hemorrhoids OPERATION: Colonoscopy with biopsy SURGEON: MALENA QUIÑONEZ ANESTHESIA: LMAC TISSUE REMOVED OR ALTERED: As noted above. COMPLICATIONS: None. ESTIMATED BLOOD LOSS: None. INTRAOPERATIVE FINDINGS: As noted above. PROCEDURE: Patient tolerated the procedure well. No immediate postprocedure complications are noted. Patient discharged in good condition. Discharge date 11/05/2018. Discharge diet: Regular. Discharge activity: Regular. 2 to 3-week follow-up to discuss findings. Patient is instructed to call the office or proceed to the emergency room should there be any further questions. 5-year surveillance colonoscopy.
== END 2018-11-05 10:20 | disposition home or self-care (01) ==
LOC: END 08:07
PROVIDERS: ATTEND Internal Medicine Gastroenterology
DX: K57.30 Diverticulosis of large intestine without perforation or abscess without bleeding (principal); D12.2 Benign neoplasm of ascending colon; K64.8 Other hemorrhoids; Z86.010 Personal history of colon polyps; G20 Parkinson's disease; Z85.3 Personal history of malignant neoplasm of breast; Z91.040 Latex allergy status
CPT/HCPCS: 45380; 88305 ×2; J2704; 811

== ENCOUNTER 2019-07-12 12:20 | Day surgery (SDC) | payer MEDICARE, MEDICAID ==
[~2019-07-12 12:20] MED LIST changes: +DIPHENHYDRAMINE HCL 50 MG/ML VIAL ONE; +EPINEPHRINE INJ 1 MG/10 ML DISP.SYRIN ONE; +FLUMAZENIL INJ 0.5 MG/5 ML VIAL ONE; +GLUCAGON,HUMAN RECOMB 1 MG INJ ONE; +NALOXONE HCL INJ/PF 0.4 MG/1 ML SDV ONE; +ONABOTULINUMTOXINA INJ/PF 100 UNIT SDV IJ PRN; +ONDANSETRON HCL INJ/PF 4 MG/2 ML SDV ONE; -PROPOFOL INJ 200 MG/20 ML VIAL IV ONE
[2019-07-12] MEDS: MIDAZOLAM 2 MG/2 ML INJ ONE ×3 (12:45→12:59)
[2019-07-12] MEDS: FENTANYL CITRATE INJ/PF 100 MCG/2 ML AMPUL ONE ×2 (12:47→12:51)
--- NOTE | 2019-07-12 13:10 | Operative Report ---
Operative Report DATE OF SURGERY: 07/12/19 Operative Report: The risks benefits and alternatives of the procedure explained to the patient in detail and informed consent is obtained.A GIF Olympus video scope was inserted into the patient's mouth and hypopharynx ,the esophagus is identified intubated and insufflated, the scope was then advanced through the esophagus stomach and duodenum ,retroflexion maneuver is done ,the esophagus stomach and first and second portions of the duodenum examined PREOPERATIVE DIAGNOSIS: Nausea vomiting, gastroparesis POSTOPERATIVE DIAGNOSIS: Residual food in the stomach status post Botox injection after gastric outlet 100 units per full mL. Schatzki's ring. Hiatal hernia. Biopsies to break the Schatzki's ring OPERATION: EGD with submucosal injection. EGD with biopsy SURGEON: MALENA QUIÑONEZ ANESTHESIA: LMAC TISSUE REMOVED OR ALTERED: As noted above. COMPLICATIONS: None. ESTIMATED BLOOD LOSS: None. INTRAOPERATIVE FINDINGS: As noted above. PROCEDURE: Patient tolerated the procedure well. No immediate postprocedure complications are noted. Patient is discharged in good condition. Discharge date 07/12/2019. Discharge diet: Regular. Discharge activity: Regular. 2 to 3-week follow-up to discuss findings. Patient is instructed to call the office or proceed to the emergency room should there be any further problems or questions. Wait on the pathology.
[2019-07-12 14:12] VITALS: BP 154/65
== END 2019-07-12 14:10 | disposition home or self-care (01) ==
LOC: END 12:20
PROVIDERS: ATTEND Internal Medicine Gastroenterology
DX: K31.84 Gastroparesis (principal); K22.2 Esophageal obstruction; K44.9 Diaphragmatic hernia without obstruction or gangrene; R11.2 Nausea with vomiting, unspecified
CPT/HCPCS: 43236; 43239; 88305 ×2; J2250; J3010; J2405; J0585; J0171; J1200; J1610; J2310; J3490

== ENCOUNTER 2019-07-23 11:24 | Emergency (ER) | payer MEDICARE, MEDICAID ==
--- NOTE | 2019-07-23 11:41 | ER Document Report ---
ED Medical Screen (RME) - General Chief Complaint: Abdominal Pain Stated Complaint: STOMACH PAIN Time Seen by Provider: 07/23/19 11:31 Mode of Arrival: Wheelchair Information source: Patient, Relative Notes: Patient presents complaining of epigastric pain that started yesterday. Patient reports nausea that is not improved after taking Zofran at home. Patient states that she has Parkinson's and her Parkinson's has been flaring up because she had a medication adjustment 3 weeks ago. Patient states that her stomach does not function properly although is unsure of the specific diagnoses. Patient does receive occasional Botox injections to the abdomen. Family states patient is here because she needs pain medication because her pain medicine is not working to manage her symptoms. Patient's daughter also states that they have been advised to not have any additional CT scans performed. I have greeted and performed a rapid initial assessment of this patient. A comprehensive ED assessment and evaluation of the patient, analysis of test results and completion of the medical decision making process will be conducted by additional ED providers. TRAVEL OUTSIDE OF THE [place] IN LAST 30 DAYS: No - Related Data Allergies/Adverse Reactions: latex Allergy (Intermediate, Verified 07/12/19 12:06) IF LEFT ON TOO LONG WILL IRRITATE SKIN Past Medical History - Past Medical History Cardiac Medical History: Reports: Hx Coronary Artery Disease, Hx Hyperc holesterolemia, Hx Hypertension Denies: Hx Heart Attack Pulmonary Medical History: Denies: Hx Asthma, Hx Bronchitis, Hx COPD, Hx Pneumonia Neurological Medical History: Denies: Hx Cerebrovascular Accident, Hx Seizures Renal/ Medical History: Denies: Hx Peritoneal Dialysis Malignancy Medical History: Reports: Hx Breast Cancer GI Medical History: Reports: Hx Gastroesophageal Reflux Disease. Denies: Hx Hepatitis, Hx Hiatal Hernia, Hx Ulcer Musculoskeltal Medical History: Reports Hx Arthritis Infectious Medical History: Denies: Hx Hepatitis Past Surgical History: Reports: Hx Breast Surgery - Lumpectomy x2 to Left (2004), Hx Gynecologic Surgery - left breast lumpectomy, Hx Orthopedic Surgery - back disc repair. Denies: Hx Hysterectomy, Hx Mastectomy - left lumpectomy--no restrictions, Hx Open Heart Surgery, Hx Pacemaker - Immunizations Hx Diphtheria, Pertussis, Tetanus Vaccination: Yes Physical Exam - Vital signs Vitals: Temp Pulse Resp BP Pulse Ox 97.9 F 99 20 149/84 H 99 07/23/19 11:30 07/23/19 11:30 07/23/19 11:30 07/23/19 11:30 07/23/19 11:30 - General General appearance: Appears well, Alert - Abdominal Tenderness: Tender - epigastric Course - Vital Signs Vital signs: Temp Pulse Resp BP Pulse Ox 97.9 F 99 20 149/84 H 99 07/23/19 11:30 07/23/19 11:30 07/23/19 11:30 07/23/19 11:30 07/23/19 11:30
[2019-07-23 12:23] LABS: APPEARANCE,URINE CLOUDY; BILIRUBIN,URINE NEGATIVE (NEGATIVE); COLOR,URINE AMBER; GLUCOSE, URINE NEGATIVE (NEGATIVE); KETONES,URINE TRACE mg/dL (NEGATIVE); LEUKOCYTE ESTERASE,URINE SMALL (NEGATIVE); NITRITE,URINE NEGATIVE (NEGATIVE); PROTEIN,URINE 30 mg/dL (NEGATIVE); URINE SPECIFIC GRAVITY 1.012; UROBILINOGEN,URINE NEGATIVE mg/dL (<2.0)
[2019-07-23 12:44] LABS: MEAN CORPUSCULAR HGB CONC 34.4 g/dL (32.0-36.0)
[2019-07-23 12:59] LABS: ALBUMIN 4.3 g/dL (3.5-5.0); ALKALINE PHOSPHATASE 169 U/L (38-126); ANION GAP 10 (5-19); ASPARTATE AMINO TRANSFERASE 26 U/L (14-36); BILIRUBIN,DIRECT 0.4 mg/dL (0.0-0.4); BILIRUBIN,TOTAL 0.9 mg/dL (0.2-1.3); BLOOD UREA NITROGEN 19 mg/dL (7-20); CALCIUM 9.9 mg/dL (8.4-10.2); CARBON DIOXIDE 32 mmol/L (22-30); CHLORIDE 100 mmol/L (98-107); GLUCOSE 109 mg/dL (75-110); POTASSIUM 4.2 mmol/L (3.6-5.0); TOTAL PROTEIN 7.9 g/dL (6.3-8.2)
[2019-07-23 13:04] LABS: ABSOLUTE LYMPHOCYTES (AUTO) 0.7 10^3/uL (0.5-4.7); ABSOLUTE MONOCYTES (AUTO) 0.3 10^3/uL (0.1-1.4); ABSOLUTE NEUT (AUTO) 5.2 10^3/uL (1.7-8.2); BASOPHILS % (AUTO) 0.7 % (0-2); EOSINOPHILS % (AUTO) 0.7 % (0-6); HEMATOCRIT 39.8 % (36.0-47.0); HEMOGLOBIN 13.7 g/dL (12.0-15.5); MEAN CORPUSCULAR VOLUME 102 fl (80-97); MONOCYTES % (AUTO) 5.2 % (3-13); PLATELET COUNT 189 10^3/uL (150-450); RED CELL DISTRIBUTION WIDTH 13.5 % (11.5-14.0); SEGMENTED NEUTROPHILS % (AUTO) 82.4 % (42-78); TOTAL CELLS COUNTED % (AUTO) 100 %; WHITE BLOOD COUNT 6.3 10^3/uL (4.0-10.5)
[2019-07-23] MEDS ORDERED: NORMAL SALINE 500 ML IV ONE (13:13)
[2019-07-23] MEDS ORDERED: PROMETHAZINE HCL INJ 25 MG/1 ML VIAL IV ONE ×2 (13:13→14:48)
[2019-07-23] MEDS ORDERED: HYDROMORPHONE HCL INJ/PF 2 MG/ML AMPULE IV ONE ×3 (13:15→16:06)
--- NOTE | 2019-07-23 15:01 | ER Document Report ---
Entered by CHUCKIE PIRES SCRIBE 07/23/19 [id number] Acting as scribe for:PHILLIP WATSON IV, MD ED General - General Chief Complaint: Abdominal Pain Stated Complaint: STOMACH PAIN Time Seen by Provider: 07/23/19 11:31 Primary Care Provider: SATYA HERRING MD [Primary Care Provider] - Follow up as needed Mode of Arrival: Wheelchair Information source: Patient, Relative Notes: This 79 year old female patient presents to the emergency department today with complaints of upper abdominal pain. Daughter at bedside mentions that the patient "is nauseated but can't throw up", going on to state that she has "only ever vomited 2-3 times in her life". Daughter states the patient has tried tylenol, ibuprofen, and tramadol for her pain without any change. TRAVEL OUTSIDE OF THE [place] IN LAST 30 DAYS: No - Related Data Allergies/Adverse Reactions: latex Allergy (Intermediate, Verified 07/12/19 12:06) IF LEFT ON TOO LONG WILL IRRITATE SKIN Past Medical History - General Information source: Patient, Relative - Social History Smoking Status: Former Smoker Frequency of alcohol use: None Drug Abuse: None Family History: Reviewed & Not Pertinent Patient has suicidal ideation: No Patient has homicidal ideation: No - Past Medical History Cardiac Medical History: Reports: Hx Coronary Artery Disease, Hx Hyper cholesterolemia, Hx Hypertension Malignancy Medical History: Reports: Hx Breast Cancer GI Medical History: Reports: Hx Gastroesophageal Reflux Disease Musculoskeletal Medical History: Reports Hx Arthritis Past Surgical History: Reports: Hx Breast Surgery - Lumpectomy x2 to Left (2004), Hx Orthopedic Surgery - back disc repair - Immunizations Hx Diphtheria, Pertussis, Tetanus Vaccination: Yes Hx Pneumococcal Vaccination: 07/06/11 Review of Systems - Review of Systems Constitutional: No symptoms reported EENT: No symptoms reported Cardiovascular: No symptoms reported Respiratory: No symptoms reported Gastrointestinal: See HPI, Abdominal pain, Nausea. denies: Vomiting Genitourinary: No symptoms reported Female Genitourinary: No symptoms reported Musculoskeletal: No symptoms reported Skin: No symptoms reported Hematologic/Lymphatic: No symptoms reported Neurological/Psychological: No symptoms reported -: Yes All other systems reviewed and negative Physical Exam - Vital signs Vitals: Temp Pulse Resp BP Pulse Ox 97.9 F 99 20 149/84 H 99 07/23/19 11:30 07/23/19 11:30 07/23/19 11:30 07/23/19 11:30 07/23/19 11:30 - General General appearance: Appears well, Alert In distress: None - HEENT Head: Normocephalic, Atraumatic Eyes: Normal Conjunctiva: Normal - Respiratory Respiratory status: No respiratory distress Chest status: Nontender Breath sounds: Normal - Cardiovascular Rhythm: Regular Heart sounds: Normal auscultation Murmur: No - Abdominal Inspection: Normal Distension: No distension Bowel sounds: Normal - Extremities General upper extremity: Normal inspection. No: Edema General lower extremity: Normal inspection. No: Edema - Neurological Neuro grossly intact: Yes Cognition: Normal Orientation: AAOx4 - Psychological Associated symptoms: Normal affect, Normal mood - Skin Skin Temperature: Warm Skin Moisture: Dry Skin Color: Normal Course - Re-evaluation Re-evalutation: 07/23/19 16:07 Findings of ED MSE discussed with patient and patient's family member. All questions were answered prior to discharge. Emergency signs and symptoms, reasons to return to the emergency department discussed with patient and patient's family member. - Vital Signs Vital signs: Temp Pulse Resp BP Pulse Ox 97.9 F 99 20 149/84 H 99 07/23/19 11:30 07/23/19 11:30 07/23/19 11:30 07/23/19 11:30 07/23/19 11:30 - Laboratory Result Diagrams: 07/23/19 12:27 07/23/19 12:27 Laboratory results interpreted by me: 07/23/19 07/23/19 07/23/19 11:51 12:27 12:27 MCV 102 H MCH 35.0 H Lymph % (Auto) 11.0 L Seg Neutrophils % 82.4 H Carbon Dioxide 32 H Est GFR (MDRD) Non-Af 51 L Alkaline Phosphatase 169 H Urine Protein 30 H Urine Ketones TRACE H Ur Leukocyte Esterase SMALL H - EKG Interpretation by Me Additional EKG results interpreted by me: 07/23/19 14:57 EKG G obtained on 07/23/2019 1208 hrs. was interpreted by this MD. Findings: Sinus rhythm, rate 94, nonspecific ST segments. Impression sinus rhythm with nonspecific ST segments. Discharge - Discharge Clinical Impression: Nausea Abdominal pain Qualifiers: Abdominal location: epigastric Qualified Code(s): R10.13 - Epigastric pain Condition: Good Disposition: HOME, SELF-CARE Instructions: Antinausea Medication ([facility]), Oral Narcotic Medication ([facility]) Additional Instructions: Return to the Emergency Department without delay if any worse. HOME CARE INSTRUCTIONS & INFORMATION: Thank you for choosing us for your medical needs. We hope you're satisfied with the care you received. After you leave, you must properly care for your problem and, at the same time, observe its progress. Any condition can change. Some illnesses can change rapidly over hours or days. If your condition worsens, return to the Emergency Department or see your physician promptly. ABOUT YOUR X-RAYS AND EKG'S: If you had an EKG or X-rays taken, they have been read by the Emergency Physician. The X-rays and EKG's will also be read by a Radiologist or Segmental Paving Supervisor within 24 hours. If discrepancies are noted, you will be notified by telephone. Please be certain the ED has a correct telephone number & address where you can be reached. Also, realize that some fractures or abnormalities do not show up on initial X-rays. If your symptoms continue, see your physician. ABOUT YOUR LABORATORY TEST: If you had laboratory tests, the results have been reviewed by the Emergency Physician. Some test results (for example cultures) may not be available for several days. You will be contacted if any test result shows you need additional treatment. Please be certain the ED has a correct telephone number and address where you can be reached. ABOUT YOUR MEDICATIONS: You will receive instructions on how to take your medicine on the prescription label you receive. Additional information may be provided by the Pharmacy. If you have questions afterwards, call the ED for clarification or further instructions. Some prescribed medications may cause drowsiness. Do not perform tasks such as driving a car or operating machinery without consulting your Pharmacist. If you feel you need a refill of pain medication, your condition will need re-evaluation. Please do not call for a refill of any medication. ABOUT YOUR SIGNATURE: Signature of this document acknowledges to followin. Understanding that you received emergency treatment and that you may be released before al medical problems are known or treated. Please be certain the ED has a correct phone number & address where you can be reached. 2. Acknowledgement that you will arrange for follow-up care as recommended. 3. Authorization for the Emergency Physician to provide information to your follow-up Physician in order to maximize your care. AT ANY TIME, IF YOUR SYMPTOMS CHANGE SIGNIFICANTLY OR WORSEN OR YOU DEVELOP NEW SYMPTOMS, RETURN TO THE EMERGENCY DEPARTMENT IMMEDIATELY FOR RE-EVALUATION. OUR GOAL IS TO PROVIDE EXCELLENT MEDICAL CARE! WE HOPE THAT WE HAVE MET YOUR EXPECTATIONS DURING YOUR EMERGENCY DEPARTMENT VISIT AND THAT YOU FEEL YOU HAVE RECEIVED EXCELLENT CARE! Prescriptions: Promethazine HCl [Phenergan 25 mg Tablet] 12.5 mg PO Q6HP PRN #12 tablet PRN Reason: nausea Hydrocodone/Acetaminophen [Vicodin 5-300 mg Tablet] 1 each PO Q6HP PRN #12 tablet PRN Reason: pain Referrals: SATYA HERRING MD [Primary Care Provider] - Follow up as needed MALENA QUIÑONEZ MD [ACTIVE STAFF] - 07/26/19 I personally performed the services described in the documentation, reviewed and edited the documentation which was dictated to the scribe in my presence, and it accurately records my words and actions.
[2019-07-23 16:53] VITALS: BP 172/83
--- NOTE | 2019-07-23 19:21 | EKG REPORT ---
SEVERITY:- ABNORMAL ECG - SINUS RHYTHM PROBABLE LEFT ATRIAL ABNORMALITY LEFT ANTERIOR FASCICULAR BLOCK LEFT VENTRICULAR HYPERTROPHY : Confirmed by: Lazara Burton MD 23-Jul-2019 19:21:07
== END 2019-07-23 16:49 | disposition home or self-care (01) ==
LOC: ER 11:24
DX: R11.0 Nausea (principal); R10.13 Epigastric pain; Z91.040 Latex allergy status
CPT/HCPCS: 93005; 96376; 99283; 96361; 96374; 96375; 36415; 83690; 85025; 80053; 81001; 93010; J1170; J2550; J7040

== ENCOUNTER 2020-03-05 07:52 | Day surgery (SDC) | payer MEDICARE, MEDICAID ==
[~2020-03-05 07:52] MED LIST changes: -DIPHENHYDRAMINE HCL 50 MG/ML VIAL ONE; -EPINEPHRINE INJ 1 MG/10 ML DISP.SYRIN ONE; -FLUMAZENIL INJ 0.5 MG/5 ML VIAL ONE; -GLUCAGON,HUMAN RECOMB 1 MG INJ ONE; +LIDOCAINE 2% INJ-PF (20 MG/ML) 10 ML AMPUL ONE; -NALOXONE HCL INJ/PF 0.4 MG/1 ML SDV ONE; -ONABOTULINUMTOXINA INJ/PF 100 UNIT SDV IJ PRN; -ONDANSETRON HCL INJ/PF 4 MG/2 ML SDV ONE; +PROPOFOL INJ 200 MG/20 ML VIAL IV ONE
[2020-03-05] MEDS ORDERED: ONABOTULINUMTOXINA INJ/PF 100 UNIT SDV IM PRN (10:03)
--- NOTE | 2020-03-05 10:52 | Operative Report ---
Operative Report DATE OF SURGERY: 03/05/20 Operative Report: The risks benefits and alternatives of the procedure explained to the patient in detail and informed consent is obtained.A GIF Olympus video scope was inserted into the patient's mouth and hypopharynx, the esophagus is identified intubated and insufflated, the scope was then advanced through the esophagus stomach and duodenum ,retroflexion maneuver is done ,the esophagus stomach and first and second portions of the duodenum examined PREOPERATIVE DIAGNOSIS: Nausea vomiting, gastroparesis POSTOPERATIVE DIAGNOSIS: Gastritis status post biopsy. Status post Botox injection 50 units in 2 mL at the gastric outlet. Schatzki's ring which is broken. Another 50 units of Botox at the EG junction OPERATION: EGD with submucosal injection. EGD with biopsy SURGEON: MALENA QUIÑONEZ ANESTHESIA: LMAC TISSUE REMOVED OR ALTERED: As noted above. COMPLICATIONS: None. ESTIMATED BLOOD LOSS: None. INTRAOPERATIVE FINDINGS: As noted above. PROCEDURE: Patient tolerated the procedure well. No immediate postprocedure complications are noted. Patient is discharged in good condition. Discharge date 03/05/2020. Discharge diet: Regular. Discharge activity: Regular. 2 to 3-week follow-up to discuss findings. Patient is instructed to call the office or proceed to the emergency room should there be any further problems or questions. Wait on the pathology.
[2020-03-05 11:46] VITALS: BP 168/78
== END 2020-03-05 11:47 | disposition home or self-care (01) ==
LOC: END 07:52
PROVIDERS: ATTEND Internal Medicine Gastroenterology
DX: R11.2 Nausea with vomiting, unspecified (principal); K31.84 Gastroparesis; K22.2 Esophageal obstruction; K31.9 Disease of stomach and duodenum, unspecified; I10 Essential (primary) hypertension; J45.909 Unspecified asthma, uncomplicated; G20 Parkinson's disease; Z79.899 Other long term (current) drug therapy
CPT/HCPCS: 43236; 43239; 88342 ×2; 88305 ×2; 00731; U0003; J2704; J3490; J0585; C9803; 731; 87635

== ENCOUNTER → 2020-04-24 | Day surgery (SDC) | payer MEDICARE, MEDICAID ==
[~2020-04-24] MED LIST changes: -LIDOCAINE 2% INJ-PF (20 MG/ML) 10 ML AMPUL ONE; +ONABOTULINUMTOXINA INJ/PF 100 UNIT SDV IM PRN
--- NOTE | 2020-04-24 12:08 | Operative Report ---
Operative Report DATE OF SURGERY: 04/24/20 Operative Report: The risks benefits and alternatives of the procedure explained to the patient in detail and informed consent is obtained.A GIF Olympus video scope was inserted into the patient's mouth and hypopharynx, the esophagus is identified intubated and insufflated, the scope was then advanced through the esophagus stomach and duodenum, retroflexion maneuver is done ,the esophagus stomach and first and second portions of the duodenum examined PREOPERATIVE DIAGNOSIS: Nausea vomiting, gastroparesis POSTOPERATIVE DIAGNOSIS: As above. Status post 100 units of Botox injection. 4 mL for 25 units per quadrant injection OPERATION: EGD with submucosal injection SURGEON: MALENA QUIÑONEZ ANESTHESIA: LMAC TISSUE REMOVED OR ALTERED: None. COMPLICATIONS: None. ESTIMATED BLOOD LOSS: As noted above. INTRAOPERATIVE FINDINGS: As noted above. PROCEDURE: Patient tolerated the procedure well. No immediate postprocedure complications are noted. Patient is discharged in good condition. Discharge date 04/24/2020. Discharge diet: Regular. Discharge activity: Regular. 2 to 3-week follow-up to discuss findings. Patient is instructed to call the office or proceed to the emergency room should there be any further problems or questions.
[2020-04-24 12:37] VITALS: BP 180/70
== END ==
LOC: END 09:26
PROVIDERS: ATTEND Internal Medicine Gastroenterology
DX: K31.84 Gastroparesis (principal); R11.2 Nausea with vomiting, unspecified; I10 Essential (primary) hypertension; E78.00 Pure hypercholesterolemia, unspecified; Z87.891 Personal history of nicotine dependence; Z79.899 Other long term (current) drug therapy; I25.2 Old myocardial infarction; D64.9 Anemia, unspecified; Z91.040 Latex allergy status; G20 Parkinson's disease; Z03.818 Encounter for observation for suspected exposure to other biological agents ruled out
CPT/HCPCS: 43236; U0003; J2704; J0585; C9803; 87635